=== PATIENT | female | born 1980 | race Caucasian/White ===

== ENCOUNTER → 2019-11-17 | Outpatient (CLI) | payer BC ==
--- NOTE | 2019-11-17 11:46 | MM ---
Reason for exam: screening (asymptomatic). Baseline mammogram. History: Patient had first child at age 36. Taking hormonal contraceptives for 2 years. Physical Findings: Nurse did not find any significant physical abnormalities on exam. MG Screening Mammo w CAD Bilateral CC and MLO view(s) were taken. The breast tissue is extremely dense which could obscure a lesion on mammography. Nodularity axilla tail left breast. These results were verbally communicated with the patient and result sheet given to the patient on 11/17/19. ASSESSMENT: Incomplete: need additional imaging evaluation, BI-RAD 0 RECOMMENDATION: Ultrasound of the left breast.
--- NOTE | 2019-11-17 11:47 | MM ---
Reason for exam: additional evaluation requested from abnormal screening. History: Patient had first child at age 36. Taking hormonal contraceptives for 2 years. Physical Findings: Breast exam preformed at baseline screening. MG Work Up Mamm w CAD LT Spot compression XCCL, spot compression MLO, XCCL, and LM view(s) were taken of the left breast. The breast tissue is extremely dense which could obscure a lesion on mammography. Nodule upper outer left breast axilla tail persists. Ultrasound recommended. These results were verbally communicated with the patient and result sheet given to the patient on 11/17/19. ASSESSMENT: Incomplete: need additional imaging evaluation, BI-RAD 0 RECOMMENDATION: Ultrasound of the left breast.
--- NOTE | 2019-11-17 11:50 | USB ---
Reason for exam: additional evaluation requested from abnormal screening. History: Patient had first child at age 36. Taking hormonal contraceptives for 2 years. US Breast Workup Limited LT Left limited breast ultrasound including focal area of concern, retroareolar and axilla demonstrates a 5 x 4mm hypoechoic lesion at 2 o'clock, a 8 x 5 x 7mm oval, taller than wide, hypoechoic lesion a 2 o'clock, a 13 x 8 x 9mm oval, hypoechoic lesion at 2 o'clock, a 11 x 7 x 13mm oval, cystic lesion at 2 o'clock, a 7 x 3 x 7mm oval, cystic lesion at 2 o'clock, a 9 x 7 x 8mm irregular, solid, hypoechoic lesion at 2 o'clock for which a biopsy is recommended and two lymph nodes at the axilla measuring 9mm and 6mm. These results were verbally communicated with the patient and result sheet given to the patient on 11/17/19. ASSESSMENT: Suspicious, BI-RAD 4 RECOMMENDATION: Ultrasound core biopsy of the left breast. Called Dr. Lemos's office with mammographic findings and has scheduled an appointment for the patient for 12/15/19 at 1:[address] Villarreal. Biopsy scheduled for 12/10/19 at 11:30. PRELIMINARY REPORT CALLED AND FAXED TO DR. VILLARREAL ON 11/17/19.
== END | disposition home or self-care (01) ==
LOC: RADMAMWWP 07:57
PROVIDERS: ATTEND Obstetrics & Gynecology
DX: Z12.31 Encounter for screening mammogram for malignant neoplasm of breast (principal); R92.8 Other abnormal and inconclusive findings on diagnostic imaging of breast
CPT/HCPCS: 77065; 77067

== ENCOUNTER → 2019-12-22 | Day surgery (SDC) | payer BC ==
[2019-12-22 10:32] VITALS: RESP 16
[2019-12-22 11:47] VITALS: BP 99/67; PULSE 61; TEMP 97.7
--- NOTE | 2019-12-23 16:03 | USB ---
EXAMINATION TYPE: US biopsy breast VAD LT DATE OF EXAM: 12/22/2019 CLINICAL HISTORY: N63.0 Breast lump. TECHNIQUE: Ultrasound guided core biopsy of left 2:00 breast. COMPARISON: NONE FINDINGS: The procedure of ultrasound guided core biopsy was explained to the patient. Benefits, alt ernatives, and risks were discussed. An informed consent was then obtained. The patient was placed in supine positioning for imaging and for the procedure. The overlying skin w as prepped and draped in usual sterile fashion. Lidocaine buffered with bicarbonate was used as anes thetic into the skin and subcutaneous tissue up to area of concern in the left 2:00 breast. Under ultrasound guidance, a 12-gauge vacuum assisted biopsy gun device was used to obtain 4 core cecilia ples. Following this, a biopsy clip was left in lesion. The patient tolerated the procedure well without any immediate complication. The patient was kept in the radiology department for short stay after the procedure and then discharged home in stable condi tion. IMPRESSION: Successful, uncomplicated ultrasound guided core biopsy of area of concern in the left 2: 00 breast, full pathology results to follow.
== END ==
LOC: RADUSWWP 10:08
PROVIDERS: ATTEND Student in an Organized Health Care Education/Training Program
DX: C50.912 Malignant neoplasm of unspecified site of left female breast (principal)
CPT/HCPCS: 88305; 88342; 88341; 19083; A4648; J2001